=== PATIENT | male | born 1930 | race Caucasian/White ===

== ENCOUNTER 2019-07-06 10:14 | Emergency (ER) | payer OTHER ==
--- NOTE | 2019-07-06 11:04 | EDM.PDOC ---
ED HPI GENERAL MEDICAL PROBLEM - General Chief Complaint: Upper Extremity Injury/Pain Stated Complaint: L HAND INJURY FROM A FALL Time Seen by Provider: 07/06/19 10:59 Source of Information: Reports: Patient, Family, RN Notes Reviewed History Limitations: Reports: No Limitations - History of Present Illness INITIAL COMMENTS - FREE TEXT/NARRATIVE: 88-year-old gentleman presents emergency department a complaint of pain in his left hand, he injured himself last night when he fell onto the concrete floor when he was leaning over he hit his left hand on something he has some superficial abrasions appreciated but he also scraped the top of his head against the wall. No loss of consciousness he has no nausea vomiting no headache he does have pain in his left hand but he can move all of his digits Left Hand Pain Score (Numeric/FACES): 8 - Related Data Allergies Allergy/AdvReac Type Severity Reaction Status Date / Time No Known Allergies Allergy Verified 07/06/19 10:33 Home Meds: Home Meds Alendronate Sodium [Fosamax] 70 mg PO WEEKLY 07/06/19 [History] DULoxetine [Cymbalta] 30 mg PO DAILY 07/06/19 [History] Past Medical History HEENT History: Reports: Hard of Hearing, Impaired Vision, Other (See Below) Other HEENT History: hearing aid - Infectious Disease History Infectious Disease History: Reports: Chicken Pox, Measles, Mumps - Past Surgical History HEENT Surgical History: Reports: Cataract Surgery GI Surgical History: Reports: Hernia, Inguinal Dermatological Surgical History: Reports: Skin Biopsy Social & Family History - Tobacco Use Smoking Status *Q: Former Smoker Years of Tobacco use: 10 Packs/Tins Daily: 1 Used Tobacco, but Quit: Yes Month/Year Tobacco Last Used: 1963 Second Hand Smoke Exposure: No - Caffeine Use Caffeine Use: Reports: Coffee - Alcohol Use Days Per Week of Alcohol Use: 7 Number of Drinks Per Day: 1 Total Drinks Per Week: 7 - Recreational Drug Use Recreational Drug Use: No Review of Systems - Review of Systems Review Of Systems: See Below Constitutional: Reports: No Symptoms Musculoskeletal: Reports: Hand Pain Skin: Reports: Wound Neurological: Reports: No Symptoms ED EXAM, GENERAL - Physical Exam Exam: See Below Free Text/Narrative:: Examination left hand I do appreciate some superficial skin tears across metacarpal to and for there is some erythema as well as edema appreciated across the metacarpal area, full range of motion all digits radial pulses +2 Exam Limited By: No Limitations General Appearance: Alert, WD/WN, No Apparent Distress Eye Exam: Bilateral Eye: Normal Inspection Throat/Mouth: No Airway Compromise Respiratory/Chest: No Respiratory Distress Course - Vital Signs Last Recorded V/S: Last Vital Signs Temp 97 F 07/06/19 10:43 Pulse 50 L 07/06/19 10:43 Resp 16 07/06/19 10:43 BP 167/59 H 07/06/19 10:43 Pulse Ox 97 07/06/19 10:43 - Orders/Labs/Meds Orders: Active Orders 24 hr Category Date Time Status Hand Comp Min 3V Lt [CR] Stat Exams 07/06/19 11:01 Taken Departure - Departure Time of Disposition: 12:00 Disposition: Home, Self-Care 01 Condition: Fair Clinical Impression: Contusion of left hand Qualifiers: Encounter type: initial encounter Qualified Code(s): S60.222A - Contusion of left hand, initial encounter - Discharge Information Instructions: Contusion, [id number] Referrals: Gris Sanchez MD [Primary Care Provider] - Forms: ED Department Discharge Additional Instructions: And ice, please followup with your primary care provider in 3-5 days if not better, please call return to the emergency department with worsening of symptoms. We will contact you if the radiology read of the x-ray difference from what we have been told Sepsis Event Note - Evaluation Sepsis Screening Result: No Definite Risk - Focused Exam Vital Signs: Vital Signs Temp Pulse Resp BP Pulse Ox 07/06/19 10:43 97 F 50 L 16 167/59 H 97 Date Exam was Performed: 07/06/19 Time Exam was Performed: 11:59 - My Orders Last 24 Hours: My Active Orders 07/06/19 11:01 Hand Comp Min 3V Lt [CR] Stat - Assessment/Plan Last 24 Hours: My Active Orders 07/06/19 11:01 Hand Comp Min 3V Lt [CR] Stat Plan: Assessment Acuity = acute Site and laterality = left hand contusion Etiology = secondary to trauma Manifestations = pain, edema, erythema Location of injury = Home Lab values = x-ray hand I did review films myself I cannot appreciate any acute process, the official read from radiology is pending Plan He is can use ibuprofen as needed along with rest ice follow-up primary care 3 to 5 days if not better will contact him if radiology read differs, he elected to do watchful waiting at this time and declined This note was dictated using [employer] voice recognition software please call with any questions on syntax or grammar.
--- NOTE | 2019-07-08 08:57 | CR ---
Hand Comp Min 3V Lt CLINICAL HISTORY: Pain, trauma FINDINGS: There is a cortical irregularity along the lateral aspect of the distal radius. The nondisplaced impaction fracture is not excluded. 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 Impression: Questionable deformity of the distal radius. Nondisplaced impaction fracture is not excluded. 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
== END 2019-07-06 12:21 | disposition home or self-care (01) ==
LOC: JP.ED 10:14
DX: S61.412A Laceration without foreign body of left hand, initial encounter (principal); Z87.891 Personal history of nicotine dependence; Z79.899 Other long term (current) drug therapy; W19.XXXA Unspecified fall, initial encounter; W22.8XXA Striking against or struck by other objects, initial encounter
CPT/HCPCS: 73130-26-LT; 73130-LT; 99283-25